=== PATIENT | female | born 2005 | race Caucasian/White ===

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

== ENCOUNTER 2025-05-22 14:39 | Outpatient (CLI) | payer OTHER, SELFPAY ==
--- OUTSIDE RECORDS SUMMARY | 2024-12-29 17:30 | XMS_ITS ---
Author Organization [facility] Address [address] [facility] [address] [facility] [address] [place] [address] Care Team Providers Care Pit Tanner Name Role Phone Jaci Francis Primary Care Provider Jaci Francis Unavailable [phone] Migration, Provider Unavailable Unavailable REASON FOR VISIT Multum To Medispan Conversion Encounter Medications Medication SIG (Take, Route, Frequency, Duration) Notes Start Date End Date Status ARIPiprazole 10 MG 1 tab(s) orally once a day Active Sprintec 28 0.25-35 MG-MCG 1 tab(s) oral ly once a day Active Encounters Encounter Location Date Provider Diagnosis [facility] [address] [facility] [address] [place] [address] 12/29/2024 Provider Migration Plan Of Treatment No Information Progress Notes * Diann MCCRARYnickDOB: 5 (19 yo F)Acc No.[id number]:12/29/2024 Patient: Patti CARVAJAL Provider: Barbara mansfield Migration :2005 A ge:19 Y S ex:Female Date:12/29/2024 Address:[facility] [address] [place] Pcp:Jaci Francis Subjective: * Chief Complaints: * 1 . Multum To Medispan Conversion Encounter. * Medical History: * Medications: T aking ARIPiprazole 10 MG Tablet 1 tab(s) orally once a day , Taking Sprintec 28 0.25-35 MG-MCG Tablet 1 tab(s) orally once a day Objective: * Vitals: Assessment: Plan: * Treatment: * * Electronic signature of Prov ider Migration on 05/23/2025 at 01:21 PM EDT Sign off status: Pending * Provider: Barbara mansfield Migration Date: 0 12/29/2024 Generated for Beverley jiménez/Rodo/Jeff on: 0 05/23/2025 01:21 PM EDT
[2025-05-22 20:08] LABS: Coronavirus 19, PCR Not Detected (NotDetected); Influenza A, PCR Not Detected (NotDetected); Influenza B, PCR Not Detected (NotDetected)
--- OUTSIDE RECORDS SUMMARY | 2025-05-23 13:21 | XMS_ITS | Clinical Summary ---
Author Organization Healthcare Address [address] [place] [address] Care Team Providers Care Relaster Name Role Phone Pcp, No Primary Care Provider Unavailabl e Social History Tobacco Use Types Packs/Day Years Used Date Smoking Tobacco: Never Assessed PHQ-2 Answer Date Recorded Patient Health Questionnaire-2 Score 3 09/23/2023 PHQ-9 Answer Date Recorded Patient Health Questionnaire-9 Score 15 09/23/2023 Comments Unknown Sex and Gender Information Value Date Recorded Sex Assigned at Not on file Legal Sex Female 11:47 AM EST Gender Identity Not on file Sexual Orientation Not on file Plan of Treatment Health Maintenance Due Date Last Done Comments [facility]-Depression Screening 2005 [facility]-/Child/Adol SDOH Screenings 2005 Fluoride Varnish 03/06/2006 [facility]-IPV Vaccines (2 of 3 - 4-dose series) 08/11/2009 07/14/2009 [facility]- SDOH Screenings 2023 [facility]-Adult SDOH Screenings 2023 [id number] Vaccine ( - 2023- season) 2024 05/20/2021, 04/29/2021 [facility]-Hepatitis B Vaccines (1 of 3 - 19+ 3-dose series) 2024 [facility]-Influenza Vaccine (#1) 05/27/202506/13, 07/09/2013, 2012, Additional history exists [facility]-DTaP,Tdap,and Td Vaccines (4 - Td or Tdap) 04/20/2027 04/20/2017, 07/14/2009, 01/21/2007 [facility]-Zoster Vaccines (1 of 2) 2055 07/14/2009, 10/07/2006 [facility]-HIB Vaccines Completed 10/07/2006 [facility]-Pneumococcal Vaccine: Pediatrics (0 to 5 Years) and At-Risk Patients (6 to 49 Years) Aged Out 01/21/2007 No longer eligible based on patient's age to complete this topic [facility]-Varicella Vaccines Completed 07/14/2009, 2006 HPV Vaccines Completed 01/21/2018, 04/20/2017 [facility]-Hepatitis A Vaccines Completed 01/21/2018, 03/27 [facility]-Rotavirus Vaccines Aged Out No lo nger eligible based on patient's age to complete this topic Insurance [place] [facility] [place] [address] [employer] Care Teams Relaster Relationship Specialty Start Date End Date Pcp, [place] [address] PCP - General Family Medicine 08/16/23
--- OUTSIDE RECORDS SUMMARY | 2025-05-23 13:21 | XMS_ITS | Patient Health Record ---
Author Organization [facility] Address [address] [place] [address] Care Team Providers Care Restaurant Assistant Name Role Phone Jaci Francis Primary Care Provider [phone] Jaci Francis Unavailable [phone] Jasmine Chinchilla Unavailable [phone] Migration, Provider Unavailable Unavailable Allergies No Known Allergies Results Component Value Reference Range Notes TSH W/REFLEX TO FT4 (01069) Reviewed date:11/22/2024 03:33:07 PM Interpretation: Performing Lab:NNAMDI APR [employer] [id number] [employer]erald Fuchs[address] [place] Notes/Report: NON-FASTING; NON-FASTING; NON-FASTING TSH W/REFLEX TO FT4 2.09 Reference Range 1-19 Years 0.50-4.30 Ranges First trimester 0.26-2.66 Second trimester 0.55-2.73 Third trimester 0.43-2.91 HEMOGLOBIN A1c (496) Reviewed date:11/22/2024 03:33:07 PM Interpretation: Performing Lab:[facility]NA[facility] APR [employer]ole[employer]itt[employer] [id number] [employer] Gerald [id number] [place] Notes/Report: NON-FASTING; NON-FASTING; NON-FASTING HEMOGLOBIN A1c 5.6 <5.7 % of total Hgb For the purpose of screening for the presence of diabetes: <5.7% Consistent with the absence of diabetes 5.7-6.4% Consistent with increased risk for diabetes (prediabetes) > or =6.5% Consistent with diabetes This assay result is consistent with a decreased risk of diabetes. Currently, no consensus exists regarding use of hemoglobin A1c for diagnosis of diabetes in children. According to [place] Diabetes Association (ADA) guidelines, hemoglobin A1c <7.0% represents optimal control in non- diabetic patients. Different metrics may apply to specific patient populations. Standards of Medical Care in Diabetes(ADA). COMPREHENSIVE METABOLIC PANE Sukh ([id number]) Reviewed date:11/22/2024 03:33:07 PM Interpretation: Performing Lab:NNAMDI, [facility] [id number] [facility] HospitalOoorQL[address] [place] Notes/Report: NON-FASTING; NON-FASTING; NON-FASTING GLUCOSE 113 65-99 mg/dL Fasting reference interval For someone without known diabetes, a glucose value between 100 and 125 mg/dL is consistent with prediabetes and should be confirmed with a follow-up test. UREA NITROGEN (BUN) 13 7-20 mg/dL CREATININE 0.84 0.50-0.96 mg/dL EGFR 103 > OR = 60 mL/min/1.73m2 BUN/CREATININE RATIO SEE NOTE: 6-22 (calc) Not Reported: BUN and Creatinine are within reference range. SODIUM 141 135-146 mmol/L POTASSIUM 4.4 3.8-5.1 mmol/L CHLORIDE 104 98-110 mmol/L CARBON DIOXIDE 28 20-32 mmol/L CALCIUM 9.6 8.9-10.4 mg/dL PROTEIN, TOTAL 7.1 6.3-8.2 g/dL ALBUMIN 4.2 3.6-5.1 g/dL GLOBULIN 2.9 2.0-3.8 g/dL (calc) ALBUMIN/GLOBULIN RATIO 1.4 1.0-2.5 (calc) BILIRUBIN, TOTAL 0.6 0.2-1.1 mg/dL ALKALINE PHOSPHATASE 66 36-128 U/L AST 11 12-32 U/L ALT 13 5-32 U/L Reason For Referral Reason Behavioral Health at [facility] Diagnosis 1 Moderate episode of recurrent major depressive disorder (F33.1) Referral Organization [facility] [place]UL[place]NA Referring Provider First Name Jasmine Referring Provider Last Name Renée Referring Provider Speciality Family Pra ctice Referred Organization [facility] Referred Address [address] [facility] [address] [facility], [place], [place],[address],[place] Referred Provider Specialty Psychiatry General Notes Nisreen Schroeder 2023 12:26:54 PM >Sent to [facility] Behavioral Health- They will contact patient to schedule appt. Referral Priority Routine Medications Medication SIG (Take, Route, Frequency, Duration) Notes Start Date End Date Status ARIPiprazole 10 MG 1 tab(s) orally once a day Active Sprintec 28 0.25-35 MG-MCG 1 tab(s) oral ly once a day Active Social History Tobacco Use: Social History Observation Description Date Details (start date - stop date) Never Smoker NA - NA Smoking: Question Answer Notes Are you a: nonsmoker Problems Problem Type SNOMED Code ICD Code Onset Dates Problem Status W/U Status Risk Notes Problem Morbid obesity (833064465) Obesity, morbid, BMI 50 or higher (E66.01) Active confirmed Problem Body mass index 40+ - severely obese (505674023) BMI 50.0-59.9, adult (Z68.43) Active confirmed Problem Polycystic ovary syndrome (disorder) (338066618) PCOS (polycystic ovarian syndrome) (E28.2) Active confirmed Problem Generalized anxiety disorder (79368195) CAS (generalized anxiety disorder) (F41.1) Active confirmed Problem Amenorrhea (59173294) Amenorrhea (N91.2) Active confirmed Problem Moderate recurrent major depression (54471480) Moderate episode of recurrent major depressive disorder (F33.1) Active confirmed Problem Adolescent depression (F32.A) Active confirmed Vital Signs Heart Rate 98 /min 11/19/2024 Temperature 97.8 degrees Fahrenheit 11/19/2024 Blood pressure diastolic 84 mm Hg 11/19/2024 Height 68.25 in 11/19/2024 Blood pressure systolic 106 mm Hg 11/19/2024 Weight 352.6 lbs 11/19/2024 BMI 53.21 kg/m2 11/19/2024 Encounters Encounter Location Date Provider Diagnosis [facility] [address] [place] [address] 12/29/2024 Provider Migration [facility] [address] [place] [address] 07/23/2024 Jasmine Chinchilla Moderate episode of recurrent major depressive disorder F33.1 [facility] [address] [place] [address] 08/06/2024 Jasmine Chinchilla Moderate episode of recurrent major depressive disorder F33.1 ; History of suicide attempt Z91.51 and Hospital discharge follow-up Z09 [facility] [address] [facility] [address] [place] [address] 08/13/2024 Jasmine Chinchilla Moderate episode of recurrent major depressive disorder F33.1 and History of suicide attempt Z91.51 [facility] [address] [facility] [address] [place], [place] [address] 08/20/2024 Jasmine Chinchilla Moderate episode of recurrent major depressive disorder F33.1 and History of suicide attempt Z91.51 [facility] [address] [facility] [address] [place], [place] [address] 09/20/2024 Jasmine Chinchilla Moderate episode of recurrent major depressive disorder F33.1 ; History of suicide attempt Z91.51 and Exposure to the flu Z20.828 [facility] [address] [facility] [place], [place] [address] 11/19/2024 Jasmine Chinchilla PCOS (polycystic ovarian syndrome) E28.2 ; Obesity, morbid, BMI 50 or higher E66.01 and BMI 50.0-59.9, adult Z68.43 [facility] [address] [facility] [address] [place], [place] [address] 07/30/2024 Jasmine Chinchilla [facility] [address] [facility] [address] [place], [place] [address] 08/06/2024 Jasmine Chinchilla [facility] [address] [facility] [address] [place] [address] 09/21/2024 Jasmine Chinchilla [facility] [address] [facility] [place], [place] [address] 11/19/2024 Jaci Francis Assessments Encounter Date Diagnosis (ICD Code) Assessment Notes Treatment Notes Treatment Clinical Notes Section Notes 07/23/2024 Moderate episode of recurrent major depressive disorder (ICD-10 - F33.1) Discussed rationale for pharmacotherapy changes, and discussed MOA of med. Discussed time course of expected improvements, and discussed side effect of nausea, sexual dysfunction and mental status changes - and need for urgent evaluation if agitation/SI occurs. Also counseled on importance of daily physical activity, community, therapy, journaling. Patient voices understanding and is agreeable to the plan of care above. Hesitant but agreeable to referral. Suicide hotline/resources reviewed 08/06/2024 Moderate episode of recurrent major depressive disorder (ICD-10 - F33.1) Recommend resume abilify only, try taking at night and discussed importance of establishing with a therapist and BH specialist. Her mother has control of her medications. Suicide hotline/resources reviewed 08/06/2024 History of suicide attempt (ICD-10 - Z91.51) 08/13/2024 Moderate episode of recurrent major depressive disorder (ICD-10 - F33.1) Recommend continue abilify only, at night and discussed importance of establishing with a therapist and BH specialist. Her mother has control of her medications. 08/13/2024 History of suicide attempt (ICD-10 - Z91.51) 08/20/2024 Moderate episode of recurrent major depressive disorder (ICD-10 - F33.1) Recommend continue abilify only, at night, and keep appt with BH in 3 weeks and with me afterwards to review their visit/plan. Sooner with any concerns 08/20/2024 History of suicide attempt (ICD-10 - Z91.51) 09/20/2024 Moderate episode of recurrent major depressive disorder (ICD-10 - F33.1) Recommend continue abilify only, at night, and keep appt with BH in 4 weeks and with with our office as needed at this point. again encouraged counseling, setting goals for work, driving, etc 09/20/2024 History of suicide attempt (ICD-10 - Z91.51) 11/19/2024 Obesity, morbid, BMI 50 or higher (ICD-10 - E66.01) 11/19/2024 PCOS (polycystic ovarian syndrome) (ICD-10 - E28.2) Agree that weight loss would be in her best interest but typically her insurance carrier does not cover injectable GLP-1's unless there is a history of known cardiovascular disease which she does not have. We will update labs to make sure that she has not developed any degree of diabetes. Otherwise continue efforts with diet and exercise. 11/19/2024 BMI 50.0-59.9, adult (ICD-10 - Z68.43) 09/20/2024 Exposure to the flu (ICD-10 - Z20.828) Rec watchful waiting, symptom management, return precautions reviewed 08/06/2024 Hospital discharge follow-up (ICD-10 - Z09) Plan Of Treatment Pending Test Test Name Order Date TESTOSTERONE, [place], [place] ([id number]) 2023 Insurance Providers Payer Name Payer Address Payer Phone Subscriber Number Group Number Insured Name Patient Relationship to Insured Coverage Start Date Coverage End Date [employer] [facility] [address] [address] [place] [address] [id number] Patti Dee Self - patient is the insured Medical (General) History Medical History History ICD Code asthma polycystic ovary syndrome depression Surgical History Surgery Date(Month/Year) PE tubes T & A Hospitalization History Reason Date(Month/Year) [facility] 07/2024
--- OUTSIDE RECORDS SUMMARY | 2025-05-23 13:22 | XMS_ITS | Clinical Summary ---
Author Organization [facility] Address [address] [place] [address] Care Team Providers Care Pen Tester Name Role Phone Tito Jaci Primary Care Provider [phone] Allergies No known active allergies Medications buPROPion XL (WELLBUTRIN XL) 150 MG 24 hr tablet Take 1 tablet by mouth Daily. Active hydrOXYzine (ATARAX) 25 MG tablet Take 1 tablet by mouth 3 (Three) Times a Day As Needed for Itching. Active venlafaxine XR (EFFEXOR-XR) 150 MG 24 hr capsule Take 1 capsule by mouth Daily. Active norgestimate-ethin yl estradiol (ORTHO-CYCLEN) 0.25-35 MG-MCG per tabletIndications: Encounter for oral contraception initial prescription Take 1 tablet by mouth Daily. 28 tablet 12 4 Active Active Problems Problem Noted Date Diagnosed Date PCOS (polycystic ovarian syndrome) 07/09/2024 Morbid obesity with BMI of 50.0-59.9, adult /09/2021 Family History Medical History Relation Name Comments COPD Father Chico Sr Colon cancer Father Chico Sr Pre-Colon cance r Diabetes Father [place] Sr pre-diabetic Diabetes Maternal Grandfather Josué Mcnally Diabetes Maternal Grandmother Patti Barfield Skin cancer Maternal Grandmother Patti Barfield Colon cancer Paternal Aunt Tiesha stage IV Liver cancer Paternal Aunt Tiesha stage IV Lung cancer Paternal Aunt Tiesha Lung cancer Paternal Grandfather Breast cancer Neg Hx Osteoporosis Neg Hx Ovarian cancer Neg Hx Uterine cancer Neg Hx Relation Name Status Comments Father Chico Mcnally Maternal Grandfather Josué Sr Maternal Grandmother Patti Barfield Paternal Aunt Tiesha Paternal Grandfather Social History Tobacco Use Types Packs/Day Years Used Date Smoking Tobacco: Never Smokeless Tobacco: Never Tobacco Cessation:Counseling Given: Not Answered Alcohol Use Standard Drinks/Week Comments Never 0 (1 standard drink = 0.6 oz pur e alcohol) Abuse Screen Answer Date Recorded Unsafe at Home or Work/School Not on file Feels Threatened by Someone? Not on file Does Anyone Keep You from Co ntacting Others or Doint Things Outside the Home? Not on file 07/08/2023 Physical Sign of Abuse Present Not on file 1 Housing Stability Answer Date Recorded Current Living Arrangements Not on file 06/26 Potentially Unsafe Housing Conditions Not on fina e 07/08/2023 Family and Community Support Answer Gianni e Recorded Help with Day-to-Day Activities Not on file 07/08/2023 Lonely or Isolated Not on file 07/08/2023 Employment Answer Date Recorded Do you want help finding or keeping work or a osman b? Not on file 07/08/2023 Disabilities Answer Date Recorded Concentrating, Remembering, or Making Decisions Difficulty Not on file 07/08/2023 Doing Errands Independently Difficulty Not on fi le 07/08/2023 Education Answer Date Recorded Help with school or training? Not on file Preferred Language Not on file 07/08/2023 Comments No Sex and Gender Information Value Date Recorded Sex Assigned at Not on file Legal Sex Female 11:52 AM EST Gender Identity Not on file Sexual Orientation Not on file Last Filed Vital Signs Vital Sign Reading Time Taken Comments Blood Pressure 122/78 07/09/2024 1:28 PM EDT Pulse - - Temperature - - Respiratory Rate 18 04/02/2024 3:24 PM EDT Oxygen Saturation - - Inhaled Oxygen Concentration - - Weight 153 kg (338 lb 6.4 oz) 07/09/2024 1:28 PM EDT Height 170.2 cm (5' 7.01 ) 07/09/2024 1:28 PM ED T Body Mass Index 52.99 07/09/2024 1:28 PM EDT Plan of Treatment Upcoming Encounters Date Type Department Care Team (Late st Contact Info) Description 07/15/2025 2:00 PM EDT Office Visit [facility] O[facility] [address] [place] [address] Lyubov Gibson MD [address] [facility] [address] [place] [address] Health Maintenance Due Date Last Done Comments MENINGOCOCCAL B VACCINE (1 of 2 - Standard) 2021 ANNUAL PHYSICAL 12/14/2021 HEPATITIS C SCREENING 12/14/2021 COVID-19 Vaccine (3 - 2023- season) 2024 05/20/2021, 04/29/2021 INFLUENZA VACCINE 06/26/2025 06/13/2020, , 2012, Additional history exists TDAP/TD VACCINES (2 - Td or Tdap) 04/20/2027 04/20/2017 Pneumococcal Vaccine 0-49 Aged Out 01/21/2007 No longer eligible based on patient's age to complete this topic MENINGOCOCCAL VACCINE Aged Out 04/20/2017 No alex caleb eligible based on patient's age to complete this topic HPV VACCINES Completed 01/21/2018, 04/20/2017 Insurance Care Teams Pen Tester Relationship Specialty Start Date End Date Jaci Francis DO [address] [place] [facility] [address] [place] [address] PCP - General Pediatrics 12/14/21
== END 2025-05-22 23:59 | disposition home or self-care (01) ==
LOC: LAB.DROPOF 05-23 13:17
PROVIDERS: PCP Student in an Organized Health Care Education/Training Program; Visit Provider Student in an Organized Health Care Education/Training Program
DX: R50.9 Fever, unspecified (principal)
CPT/HCPCS: 87631